=== PATIENT | male | born 1955 | race Caucasian/White ===

== ENCOUNTER 2017-11-01 09:02 | Day surgery (SDC) | payer BC ==
[~2017-11-01 09:02] MED LIST: Lactated Ringers 1,000 ML IV SCH; Midazolam 1 MG/ML 2 ML SDV ONE; Propofol 200 MG/20 ML SDV ONE
--- NOTE | 2017-11-01 11:54 | PCM.PREANE ---
Preanesthetic Assessment - Anesthesia/Transfusion/Family Hx Anesthesia History: Prior Anesthesia Without Reaction Family History of Anesthesia Reaction: No Transfusion History: No Prior Transfusion(s) - Review of Systems General: No Symptoms Pulmonary: No Symptoms Cardiovascular: No Symptoms Gastrointestinal: No Symptoms Neurological: No Symptoms Other: Reports: None - Physical Assessment NPO Status Date: 11/01/17 NPO Status Time: 07:30 O2 Sat by Pulse Oximetry: 93 Respiratory Rate: 16 Vital Signs: Last Vital Signs Temp 36.5 C 11/01/17 09:10 Pulse 68 11/01/17 09:10 Resp 16 11/01/17 09:10 BP 148/87 H 11/01/17 09:10 Pulse Ox 93 L 11/01/17 09:10 Height: 1.78 m Weight: 97.069 kg ASA Class: 2 Mental Status: Alert & Oriented x3 Dentition: Reports: Normal Dentition, [place](s) ROM/Head Extension: Full Lungs: Clear to Auscultation, Normal Respiratory Effort Cardiovascular: Regular Rate, Regular Rhythm - Allergies Allergies/Adverse Reactions: Allergies Allergy/AdvReac Type Severity Reaction Status Date / Time No Known Allergies Allergy Verified 10/29/17 10:10 - Anesthesia Plan Pre-Op Medication Ordered: None - Acknowledgements Anesthesia Type Planned: MAC Pt an Appropriate Candidate for the Planned Anesthesia: Yes Alternatives and Risks of Anesthesia Discussed w Pt/Guardian: Yes Pt/Guardian Understands and Agrees with Anesthesia Plan: Yes PreAnesthesia Questionnaire HEENT History: Reports: Other (See Below) Other HEENT History: wears reading glasses Cardiovascular History: Reports: High Cholesterol, Hypertension Gastrointestinal History: Reports: Helicobacter Pylori Musculoskeletal History: Reports: Back Pain, Chronic, Fracture Other Musculoskeletal History: hx fx heel and left arm Neurological History: Reports: Other (See Below) Other Neuro History: essential tremors Endocrine/Metabolic History: Reports: Diabetes, Type II Dermatologic History: Reports: Psoriasis - Past Surgical History Head Surgeries/Procedures: Reports: None GI Surgical History: Reports: Appendectomy - SUBSTANCE USE Smoking Status *Q: Never Smoker Number of Drinks Per Day: 2 Recreational Drug Use History: No - HOME MEDS Home Medications: Home Meds Ascorbic Acid [Vitamin C] 2 tab PO DAILY 03/18/14 [History] Aspirin [[place] Aspirin] 81 mg PO DAILY 03/18/14 [History] Calcium Carbonate/Vitamin D3 [Calcium 600 + Vit D Tablet] 1 tab PO DAILY [History] Cholecalciferol (Vitamin D3) [Vitamin D3] 1,000 units PO DAILY 03/18/14 [History ] Multivitamin [Multivitamins] 1 tab PO DAILY 03/18/14 [History] Vitamin E Mixed [Vitamin E] 400 units PO DAILY 03/18/14 [History] Empagliflozin/Metformin HCl [Synjardy 12.5-1,000 mg Tablet] 1 tab PO BID [History] Pravastatin Sodium 20 mg PO DAILY 10/29/17 [History] - CURRENT (IN HOUSE) MEDS Current Meds: Current Medications Lactated Ringer's (Ringers, Lactated) 1,000 mls @ 125 mls/hr IV ASD[facility]ED [facility] Last Admin: 11/01/17 09:25 Dose: 125 mls/hr Discontinued Medications Lidocaine HCl (Xylocaine-Mpf 1%) Confirm Administered Dose 5 mls @ as directed .ROUTE .STK-MED ONE Stop: 11/01/17 07:37 Midazolam HCl (Versed 1 Mg/Ml) Confirm Administered Dose 2 mg .ROUTE .STK-MED ONE Stop: 11/01/17 07:36 Propofol (Diprivan 20 Ml) Confirm Administered Dose 200 mg .ROUTE .STK-MED ONE Stop: 11/01/17 07:36
[2017-11-01] MEDS ORDERED: Propofol 200 MG/20 ML SDV ONE (13:04)
--- NOTE | 2017-11-01 13:12 | PCM.OPNOTE ---
- General Post-Op/Procedure Note Date of Surgery/Procedure: 11/01/17 Operative Procedure(s): egd w bx Findings: see dict [id number] Pre Op Diagnosis: abd pain and hpylori infection Post-Op Diagnosis: Same Anesthesia Technique: Moderate Sedation Primary Surgeon: Carlos A Garcia Pathology: sent egd Complications: None Condition: Good
--- NOTE | 2017-11-01 13:51 | PCM.POSTAN ---
POST ANESTHESIA ASSESSMENT - MENTAL STATUS Mental Status: Alert, Oriented - RESPIRATORY Respiratory Status: Respiratory Rate WNL, Airway Patent, O2 Saturation Stable - CARDIOVASCULAR CV Status: Pulse Rate WNL, Blood Pressure Stable - GASTROINTESTINAL GI Status: No Symptoms - POST OP HYDRATION Hydration Status: Adequate & Stable
--- NOTE | 2017-11-01 14:15 | PCM48HPAN ---
Post Anesthesia Note - EVALUATION WITHIN 48HRS OF ANESTHETIC Vital Signs in Normal Range: Yes Patient Participated in Evaluation: Yes Respiratory Function Stable: Yes Airway Patent: Yes Cardiovascular Function Stable: Yes Hydration Status Stable: Yes Pain Control Satisfactory: Yes Nausea and Vomiting Control Satisfactory: Yes Mental Status Recovered: Yes Resp Rate: 15
[2017-11-01 14:22] VITALS: BP 128/86
--- NOTE | 2017-11-01 20:06 | OR ---
SURGEON: Carlos A Garcia MD DATE OF PROCEDURE: 11/01/2017 PREOPERATIVE DIAGNOSES: 1. Helicobacter pylori infection. 2. Abdominal pain. POSTOPERATIVE DIAGNOSES: 1. Helicobacter pylori infection. 2. Abdominal pain. PROCEDURE IN DETAIL: EGD with biopsy. PROCEDURE IN DETAIL: EGD: The patient was taken to the endoscopy room, and with the SURGICAL TECHNOLOGY INSTRUCTOR, Diprivan was administered. A well-lubricated EGD scope was gently inserted through the oropharynx, down the esophagus, passing through the gastroesophageal junction, into the stomach. The mucosa was examined upon the passage. Any etiology will be noted. Once in the stomach, we continued to advance to the distal antrum, passed through the pylorus into the second portion of the duodenum. Again, the mucosa was examined for any abnormality and etiology. The scope was then retrieved back to the stomach and then retroflexed to look at the fundus of the stomach. If a biopsy was indicated, we will biopsy the antrum, body, and gastroesophageal junction. The air will be sucked out while the scope is retrieved to reduce the patient's discomfort. The patient tolerated the procedure well. There were no intraoperative complications. Dr. Garcia was present through the whole procedure. Prior to surgery, a time-out had been called, the patient identified, procedure identified and antibiotic administered. FINDINGS: 1. The patient is easily sedated with SURGICAL TECHNOLOGY INSTRUCTOR and Diprivan, the patient is soundly snoring. 2. Oropharynx and proximal esophagus free of disease, stricture, or inflammation. Distal esophagus, GE junction at 40 shows mild, salmon- colored change consistent with acid reflux. Stomach rugae is normal in appearance and antrum is normal in appearance. Duodenum grossly normal. Scope retrieved back to the stomach. Retroflexed look at the fundus of stomach, there was no hiatal hernia. Biopsy done at antrum, body, GE junction at 40 and sucked out the gastroscope pulling out. DAVID / EMMY /[id number]
== END 2017-11-01 14:28 | disposition home or self-care (01) ==
LOC: MW.SDS 09:02
PROVIDERS: ATTEND Surgery
DX: K29.50 Unspecified chronic gastritis without bleeding (principal); K20.9 Esophagitis, unspecified; J30.9 Allergic rhinitis, unspecified; E11.9 Type 2 diabetes mellitus without complications; I10 Essential (primary) hypertension; G25.0 Essential tremor; E78.00 Pure hypercholesterolemia, unspecified; Z79.82 Long term (current) use of aspirin; Z79.84 Long term (current) use of oral hypoglycemic drugs; Z79.899 Other long term (current) drug therapy; Z87.891 Personal history of nicotine dependence
CPT/HCPCS: 43239; 82962; J2250; J2704; J7120